=== PATIENT | female | born 1995 | race Caucasian/White ===

== ENCOUNTER 2019-03-20 14:57 | Emergency (ER) | payer OTHER ==
[~2019-03-20] VITALS: Ht 162.6 cm; Wt 73.5 kg
[~2019-03-20 14:57] MED LIST: NAPH15DR OP; OFLO5DRO46 LEFT EYE
[2019-03-20 15:02] VITALS: BP 121/53; PULSE 77; RESP 16; Ht 162.6 cm; Wt 73.5 kg
== END 2019-03-20 15:52 | disposition home or self-care (01) ==
LOC: E/R 14:57
DX: H10.32 Unspecified acute conjunctivitis, left eye (principal)
CPT/HCPCS: 99283